=== PATIENT | male | born 1940 | race Caucasian/White ===

== ENCOUNTER → 2016-12-19 | Outpatient (CLI) | payer MEDICARE, OTHER ==
[~2016-12-19] MED LIST: ACETAMINOPHEN PO; ADVAIR 250-501 EACH INH; ASPIRIN81 MG PO; COL-RITE50 MG PO; LISINOPRIL20 MG PO; LOPRESSOR PO; MAG-OXIDE400 MG PO; NASAL RELIEF30 ML NS; PRADAXA150 MG PO; PRINIVIL20 M1 PO; PROTONIX PO; [UNRECOGNIZED DRUG - REMARK] PO
== END | disposition home or self-care (01) ==
LOC: CRC 12:20
DX: R91.1 Solitary pulmonary nodule (principal)
CPT/HCPCS: 94060; 94726; 94729

== ENCOUNTER → 2016-12-30 | Outpatient (CLI) | payer MEDICARE, OTHER ==
--- NOTE | ~2016-12-30 | CT6 ---
[facility] A Service of [facility] & [facility] RADIOLOGY TEXT RESULTS PATIENT: YOLA MARKS LOCATION: [facility] : 44 UNIT #: [id number] AGE: [address]: Star Napier MD SEX: M ORDER DR: [id number] [facility]. [place], [place] [address] [id number] O MR#: [id number] Acc #: [id number] NAME: YOLA MARKS : 1940 SEX: M STUDY DATE/TIME: 12/30/2016 9:12 UNIT: [facility] ROOM: STUDY DESCRIPTION: CT Abdomen WWo Cont Attending Physician: Star Napier M.D. Ordering Physician: Star Napier M.D. Primary Care Physician: No Primary Care Physician MEDICAL IMAGING REPORT This report is preliminary unless electronic signature is present EXAM CT scan of the abdomen pre and postcontrast with multiphase postcontrast evaluation of the liver. DATE OF EXAM 12/30/2016 HISTORY Lung cancer. Nonspecific liver lesion seen on CT. Evaluate for malignant potential. TECHNIQUE Axial imaging was obtained through the abdomen pre and postcontrast with multiphase postcontrast evaluation of the liver. NOTE: This CT exam was performed with one or more of the following radiation dose reduction techniques: automatic exposure control, adjustment of mA and/or kV according to patient size, and iterative reconstruction. FINDINGS Precontrast abdominal scanning shows a nonobstructing left kidney stone and bilateral renal cysts. Multiple low-density liver lesions are seen. Multiphase evaluation of the liver shows one nonenhancing liver lesion posteriorly in the right lobe measuring 2 cm in diameter consistent with simple hepatic cyst. There is also a simple cyst in the caudate lobe. There are multiple other low-density lesions that are nonspecific, and certainly not typical for hemangiomas and they are suspicious for a widespread hepatic metastatic disease. Most lesions are quite small and generally between 5 and 15 mm in diameter. IMPRESSION The low-density lesion seen on the previous CT scan from outside institution represents a simple cyst, and there is also a small simple [facility] A Service of [facility] & [facility] RADIOLOGY TEXT RESULTS PATIENT: YOLA MARKS LOCATION: [facility] : 44 UNIT #: [id number] AGE: [address]: Star Napier MD SEX: M ORDER DR: cyst in the caudate lobe. There are, however, numerous low-density liver lesions seen throughout the entire liver, generally between 5 and 15 mm in diameter that are strongly suspicious for widespread hepatic metastasis. Also noted is a nonobstructing left kidney stone and bilateral renal cysts. Dictated by... Yola Rosario M.D. THIS IS AN ELECTRONICALLY VERIFIED REPORT Yola Rosario M.D. at 01/01/2017 9:40 PM CLEMENTE/terence TD: 12/30/2016 21:43 JOB #: [id number] MEDICAL IMAGING REPORT COPY
--- NOTE | ~2016-12-30 | CR71 ---
[facility] A Service of [facility] & [facility] RADIOLOGY TEXT RESULTS PATIENT: YOLA MARKS LOCATION: [facility] : 42 UNIT #: [id number] AGE: [address]: Star Napier MD SEX: M ORDER DR: [id number] [facility] [address] [place], [place] [address] [id number] O MR#: [id number] Acc #: [id number] NAME: YOLA MARKS : 1940 SEX: M STUDY DATE/TIME: 12/30/2016 12:13 UNIT: [facility] ROOM: STUDY DESCRIPTION: CR Chest Single View Attending Physician: Star Napier M.D. Ordering Physician: Yola Rosario M.D. Primary Care Physician: No Primary Care Physician MEDICAL IMAGING REPORT This report is preliminary unless electronic signature is present EXAM Chest PA and lateral. HISTORY Status post right lung biopsy. TECHNIQUE PA and lateral views are obtained. FINDINGS Redemonstrated is a pulmonary nodule in the right upper lobe. No pneumothorax is seen. Heart size is stable. There is chronic volume loss on the left with a healing left rib fracture. CONCLUSION No pneumothorax post lung biopsy. Dictated by... Giovani Steele M.D. THIS IS AN ELECTRONICALLY VERIFIED REPORT Giovani Steele M.D. at 01/02/2017 5:09 PM JEWELL/temo TD: 12/30/2016 17:18 JOB #: [id number] MEDICAL IMAGING REPORT Page 1 of 1 COPY
--- NOTE | ~2016-12-30 | CR71 ---
[facility] A Service of [facility] & [facility] RADIOLOGY TEXT RESULTS PATIENT: YOLA MARKS LOCATION: [facility] : 44 UNIT #: [id number] AGE: [address]: Star Napier MD SEX: M ORDER DR: [id number] [facility] [address] [facility]. [place], [place] [address] [id number] O MR#: [id number] Acc #: [id number] NAME: YOLA MARKS : 1940 SEX: M STUDY DATE/TIME: UNIT: [facility] ROOM: STUDY DESCRIPTION: CR Chest Single View Attending Physician: Star Napier M.D. Ordering Physician: Yola Rsoario M.D. Primary Care Physician: No Primary Care Physician MEDICAL IMAGING REPORT This report is preliminary unless electronic signature is present EXAM Chest portable 12/30/2016 1004 hours HISTORY 76-year-old man status post right lung biopsy today. Evaluate for pneumothorax. COMPARISON Chest film 12/09/2014, CT biopsy images 12/30/2016 FINDINGS Single upright portable view demonstrates normal heart size with tortuous aorta. There is a nodule in the right midlung unchanged from CT 12/30/2016. There is no pleural effusion or pneumothorax. IMPRESSION There is a right midlung nodule unchanged from CT biopsy images 12/30/2016. There is no right pleural effusion or pneumothorax. There is blunting of the left costophrenic sulcus. Dictated by... Sarah Mcclendon M.D. THIS IS AN ELECTRONICALLY VERIFIED REPORT Sarah Mcclendon M.D. at 12/30/2016 2:31 PM LAURAM/karthik TD: 12/30/2016 12:50 JOB #: [id number] MEDICAL IMAGING REPORT COPY
--- NOTE | ~2016-12-30 | CT134 ---
[facility] A Service of [facility] RADIOLOGY TEXT RESULTS PATIENT: YOLA MARKS LOCATION: [facility] : 42 UNIT #: [id number] AGE: [address]: Star Napier MD SEX: M ORDER DR: [id number] [address] [place], [place] [address] [id number] O MR#: [id number] Acc #: [id number] NAME: YOLA MARKS : 1940 SEX: M STUDY DATE/TIME: 12/30/2016 9:31 UNIT: [facility] ROOM: STUDY DESCRIPTION: CT Guide Attending Physician: Star Napier M.D. Ordering Physician: Star Napier M.D. Primary Care Physician: No Primary Care Physician MEDICAL IMAGING REPORT This report is preliminary unless electronic signature is present EXAM CT-guided lung biopsy. HISTORY PET-avid right upper lobe mass. Mass was noted on an outside CT scan from 12/01/2016. TECHNIQUE The procedure was explained to the patient, including risks, benefits and complications. Informed consent was obtained, and a formal time-out procedure was utilized. Conscious sedation was employed with intravenous Versed and fentanyl that was administered by nursing, who was present and monitoring the patient during the examination. Using sterile technique and following local anesthesia with 2% Xylocaine under CT guidance, an 17-gauge guiding needle was placed directly toward the mass to the pleural surface. Permanent CT images were recorded, and position of the needle was confirmed with CT. The needle was then advanced to the lesion, and 1 core was obtained with an 18-gauge biopsy gun. Tissue was placed in formalin and sent for appropriate stains and analysis. The patient tolerated the procedure well. Repeat scanning after the procedure shows a small amount of hemorrhage around the nodule and no pneumothorax. The patient will be kept on bed rest for 2 hours following the examination. Chest x-ray will be obtained immediately after the CT, as well as after 2 hours of bed rest prior to anticipated discharge. IMPRESSION Technically successful CT-guided biopsy of the right upper lobe lung mass with conscious sedation. Dictated by... [facility] A Service of [facility] RADIOLOGY TEXT RESULTS PATIENT: YOLA MARKS LOCATION: [facility] #: [id number] : 44 UNIT #: [id number] AGE: [address]: Star Napier MD SEX: M ORDER DR: Yola Rosario M.D. THIS IS AN ELECTRONICALLY VERIFIED REPORT Yola Rosario M.D. at 12/30/2016 4:55 PM CLEMENTE/zoë TD: 12/30/2016 13:07 JOB #: [id number] MEDICAL IMAGING REPORT COPY
[2016-12-30 07:29] LABS: HEMATOCRIT 45.8 % (38.0-50.0); HEMOGLOBIN 14.9 gm/dL (13.0-16.0); MEAN CORPUSCULAR HGB CONC 32.6 g/dL (30-36); MEAN PLATELET VOLUME 8.7 FL (6.5-11.5); RED BLOOD COUNT 5.15 X10e (3.90-5.60); RED CELL DISTRIBUTION WIDTH 14.8 % (11.0-15.5)
[2016-12-30 07:48] LABS: PARTIAL THROMBOPLASTIN TIME 26.4 SECONDS (23.5-31.3); PROTHROMBIN TIME (PATIENT) 10.2 SECONDS (9.6-11.5)
[2016-12-30 09:26] LABS: POC - CREATININE 1.16 mg/dL (0.64-1.27); POC - GFR >60.0 mL/min (>60)
== END | disposition home or self-care (01) ==
LOC: CIVR 06:55
PROVIDERS: Surgery
DX: C34.11 Malignant neoplasm of upper lobe, right bronchus or lung (principal); K76.89 Other specified diseases of liver; N20.0 Calculus of kidney; N28.1 Cyst of kidney, acquired
CPT/HCPCS: 36415; 71010; 74170; 77012; 82565; 85027; 85610; 85730; 88305; 88341; 88342; J2250; J3010; Q9967